=== PATIENT | male | born 1955 | race African-American/Black ===

== ENCOUNTER 2017-04-06 08:59 | Emergency (ER) | payer MEDICAID ==
[~2017-04-06] VITALS: Ht 172.7 cm; Wt 75.0 kg
[2017-04-06] MEDS ORDERED: SODIUM CHLORIDE 0.9% 1,000 ML IV ONE (09:31)
[2017-04-06 09:53] LABS: CLARITY URINE CLEAR (CLEAR); COLOR URINE YELLOW (YELLOW); GLUCOSE URINE NEGATIVE (NEGATIVE); KETONES URINE NEGATIVE (NEGATIVE); LEUKOCYTE ESTERASE URINE NEGATIVE (NEGATIVE); NITRITE URINE NEGATIVE (NEGATIVE); OCCULT BLOOD URINE NEGATIVE (NEGATIVE); PROTEIN URINE NEGATIVE (NEGATIVE); SPECIFIC GRAVITY URINE 1.006 (1.005-1.030); UROBILINOGEN URINE 0.2 E.U./dL (0.2-1.0)
[2017-04-06 10:03] LABS: PARTIAL THROMBOPLASTIN TIME 28.5 sec (23.4-31.0); PROTHROMBIN TIME 10.2 sec (9.4-11.6)
[2017-04-06 10:13] LABS: CARBON DIOXIDE 27 mEq/L (21-32); CHLORIDE 104 mEq/L (98-107); ETHANOL BLOOD < 10 mg/dL; TROPONIN I < 0.02 ng/mL (0.00-0.04)
[2017-04-06 10:15] LABS: BASOPHILS % 0.6 % (0.0-2.0); EOSINOPHILS % 1.6 % (0.0-5.0); HEMATOCRIT. 39.4 % (42.0-52.0); HEMOGLOBIN. 12.9 g/dL (14.0-18.0); LYMPHOCYTES % 33.1 % (20.0-50.0); MEAN CORPUSCULAR HEMOGLOBIN 27.5 pg (28.0-32.0); MEAN CORPUSCULAR VOLUME 83.9 fL (80.0-94.0); MEAN PLATELET VOLUME 7.7 fl (7.4-10.4); MONOCYTES % 10.9 % (2.0-8.0); NEUTROPHILS % 53.8 % (40.0-76.0); PLATELET 160 x1000/uL (130-400); RED BLOOD CELL COUNT 4.69 mill/uL (4.7-6.1); RED CELL DISTRIBUTION WIDTH 14.3 % (11.6-14.6)
[2017-04-06 10:19] LABS: *AMPHETAMINES SCREEN URINE NEGATIVE (NEGATIVE); *BARBITURATES SCREEN URINE NEGATIVE (NEGATIVE); *BENZODIAZEPINES SCREEN URINE NEGATIVE (NEGATIVE); *COCAINE SCREEN URINE NEGATIVE (NEGATIVE); CANNABINOID URINE SCREEN NEGATIVE (NEGATIVE); METHADONE URINE SCREEN NEGATIVE (NEGATIVE); OPIATES URINE SCREEN NEGATIVE (NEGATIVE); PHENCYCLIDINE URINE SCREEN NEGATIVE (NEGATIVE)
[2017-04-06 11:15] VITALS: BP 155/18
== END 2017-04-06 12:32 | disposition home or self-care (01) ==
LOC: ER 09:06
DX: R11.10 Vomiting, unspecified (principal); R35.8 Other polyuria; E11.9 Type 2 diabetes mellitus without complications; R56.9 Unspecified convulsions
CPT/HCPCS: 36415; 70450; 71010; 80053; 80185; 80305; 81003; 82962; 83735; 84484; 85025; 85610; 85730; 93005; 99285; G0482; J7030; Z7610

== ENCOUNTER 2018-09-17 10:04 | Inpatient (IN) | payer MEDICAID, OTHER ==
[~2018-09-17] VITALS: Ht 182.9 cm; Wt 73.5 kg
[2018-09-17 10:45] LABS: BASOPHILS % 0.7 % (0.0-2.0); EOSINOPHILS % 1.8 % (0.0-5.0); HEMATOCRIT. 46.2 % (42.0-52.0); HEMOGLOBIN. 14.8 g/dL (14.0-18.0); LYMPHOCYTES % 22.2 % (20.0-50.0); MEAN CORPUSCULAR HEMOGLOBIN 27.5 pg (28.0-32.0); MEAN CORPUSCULAR VOLUME 85.6 fL (80.0-94.0); MEAN PLATELET VOLUME 7.8 fl (7.4-10.4); NEUTROPHILS % 66.3 % (40.0-76.0); PLATELET 225 x1000/uL (130-400); RED CELL DISTRIBUTION WIDTH 14.4 % (11.6-14.6)
[2018-09-17 10:54] LABS: *BARBITURATES SCREEN URINE NEGATIVE (NEGATIVE)
[2018-09-17 10:57] LABS: INR 1.1; PARTIAL THROMBOPLASTIN TIME 31.5 sec (23.4-31.0); PROTHROMBIN TIME 10.6 sec (9.1-11.1)
[2018-09-17 10:58] LABS: *COCAINE SCREEN URINE PRESUMTIVE POSITIVE (NEGATIVE); CHLORIDE 106 mEq/L (98-107)
[2018-09-17 11:01] LABS: METHADONE URINE SCREEN NEGATIVE (NEGATIVE)
[2018-09-17 11:03] LABS: ETHANOL BLOOD < 10 mg/dL
[2018-09-17 11:07] LABS: PHENCYCLIDINE URINE SCREEN NEGATIVE (NEGATIVE)
[2018-09-17 11:08] LABS: CANNABINOID URINE SCREEN NEGATIVE (NEGATIVE)
[2018-09-17 11:12] LABS: *BENZODIAZEPINES SCREEN URINE NEGATIVE (NEGATIVE)
[2018-09-17 11:14] LABS: *AMPHETAMINES SCREEN URINE NEGATIVE (NEGATIVE); OPIATES URINE SCREEN NEGATIVE (NEGATIVE)
[2018-09-17] MEDS ORDERED: ASPIRIN 81MG TABLET PO ONE (11:45)
[2018-09-17 12:14] LABS: PHENOBARBITAL < 2.1 ug/mL (15.0-40.0)
[2018-09-17] MEDS ORDERED: PHENYTOIN SODIUM 1,000 MG in SODIUM CHLORIDE 0.9% 100 ML IV ONE (12:30)
[2018-09-17] MEDS ORDERED: PHENOBARBITAL 100MG TABLET PO ONE (12:30)
[2018-09-17] MEDS ORDERED: CLONIDINE 0.1MG TABLET PO PRN (14:30)
[2018-09-17] MEDS ORDERED: HYDROCODONE/ACETAMINOPHEN 5/325MG TABLET PO PRN (14:30)
[2018-09-17] MEDS ORDERED: IPRATROPIUM/ALBUTEROL 0.5-3(2.5)MG/3ML NEB INH PRN (14:30)
[2018-09-17] MEDS ORDERED: ACETAMINOPHEN 325MG TABLET PO PRN (14:30)
[2018-09-17] MEDS ORDERED: MORPHINE SULFATE 4 MG/ML CPJ (NOT FOR IM USE) IV PRN (14:30)
[2018-09-17] MEDS ORDERED: LORAZEPAM 0.5MG TABLET PO PRN (14:30)
[2018-09-17] MEDS ORDERED: DOCUSATE SODIUM 100MG CAPSULE PO PRN (14:30)
[2018-09-17] MEDS ORDERED: ONDANSETRON HCL 4MG/2ML INJ IV PRN (14:30)
[2018-09-17 18:18] LABS: PHOSPHORUS 2.2 mg/dL (2.5-4.9)
[2018-09-17 18:23] LABS: CREATINE KINASE MB FRACTION 2.5 ng/mL (0.5-3.6)
[2018-09-17 21:00] VITALS: BP 136/63
[2018-09-17] MEDS: INSULIN LISPRO 100 UNITS/ML SUBCUT SCH (21:53)
[2018-09-17] MEDS: BLOOD SUGAR DIAGNOSTIC STRIP TEST SCH (21:53)
[2018-09-17] MEDS ORDERED: DEXTROSE 50% WATER 50ML SYRINGE IV PRN (22:00)
[2018-09-17] MEDS ORDERED: PNEUMOCOCCAL 23-VAL P-SAC VAC 0.5 ML IM ONE (22:45)
[2018-09-17] MEDS ORDERED: INFLUENZA VIRUS VACCINE(AFLURIA) 0.5ML SYR IM ONE (22:45)
[2018-09-18] VITALS (7 sets, daily range): BP systolic 101–160; BP diastolic 51–72
[2018-09-18 06:23] LABS: BASOPHILS % 0.7 % (0.0-2.0); EOSINOPHILS % 2.8 % (0.0-5.0); HEMATOCRIT. 40.4 % (42.0-52.0); LYMPHOCYTES % 32.5 % (20.0-50.0); MEAN CORPUSCULAR HEMOGLOBIN 27.2 pg (28.0-32.0); MEAN CORPUSCULAR VOLUME 84.5 fL (80.0-94.0); MONOCYTES % 11.5 % (2.0-8.0); NEUTROPHILS % 52.5 % (40.0-76.0); PLATELET 228 x1000/uL (130-400); RED BLOOD CELL COUNT 4.78 mill/uL (4.7-6.1); RED CELL DISTRIBUTION WIDTH 14.2 % (11.6-14.6)
[2018-09-18] MEDS: BLOOD SUGAR DIAGNOSTIC STRIP TEST SCH ×4 (06:44→21:32)
[2018-09-18] MEDS: INSULIN LISPRO 100 UNITS/ML SUBCUT SCH ×4 (06:44→21:00)
[2018-09-18 07:23] LABS: CHLORIDE 108 mEq/L (98-107)
[2018-09-18] MEDS: ARIPIPRAZOLE 10MG TABLET PO SCH (09:22)
[2018-09-19] VITALS: BP 128/76
[2018-09-19 04:00] VITALS: BP 107/62
[2018-09-19] MEDS: BLOOD SUGAR DIAGNOSTIC STRIP TEST SCH ×4 (06:01→21:20)
[2018-09-19] MEDS: INSULIN LISPRO 100 UNITS/ML SUBCUT SCH ×3 (07:41→21:00)
[2018-09-19 08:00] VITALS: BP 113/49
[2018-09-19] MEDS: ARIPIPRAZOLE 10MG TABLET PO SCH (08:15)
[2018-09-19 12:00] VITALS: BP 101/42
[2018-09-19 16:00] VITALS: BP 141/58
[2018-09-19 20:00] VITALS: BP 131/60
[2018-09-20] VITALS: BP 129/65
[2018-09-20] MEDS: BLOOD SUGAR DIAGNOSTIC STRIP TEST SCH (05:52)
[2018-09-20 06:38] VITALS: BP 134/69
[2018-09-20 08:00] VITALS: BP 126/60
[2018-09-20] MEDS: INSULIN LISPRO 100 UNITS/ML SUBCUT SCH (08:10)
[2018-09-20] MEDS: ARIPIPRAZOLE 10MG TABLET PO SCH (09:42)
[2018-09-20 12:00] VITALS: BP 114/69
[2018-09-20 15:35] VITALS: BP 126/60
== END 2018-09-20 17:38 | disposition home or self-care (01) | DRG 203 ==
LOC: ER 10:04 → 7WST 11:20 → EDBEDREQTM 11:28 → EDBEDREQ 11:28 → ENRESERV 17:28
PROVIDERS: ADMIT Internal Medicine; ATTEND Internal Medicine
DX: M94.0 Chondrocostal junction syndrome [Tietze] (principal); I24.9 Acute ischemic heart disease, unspecified; I50.9 Heart failure, unspecified; F20.9 Schizophrenia, unspecified; E11.9 Type 2 diabetes mellitus without complications; G40.909 Epilepsy, unspecified, not intractable, without status epilepticus; F17.200 Nicotine dependence, unspecified, uncomplicated; F14.10 Cocaine abuse, uncomplicated; F31.9 Bipolar disorder, unspecified; Z79.84 Long term (current) use of oral hypoglycemic drugs; I25.2 Old myocardial infarction
CPT/HCPCS: 36415; 71045; 80048; 80061; 80184; 80185; 80305; 80320; 82550; 82553; 82962; 83036; 83735; 83880; 84100; 84443; 84484; 85379; 90686; 90732; 93005; 93306; 96365; 96366; 99291; J1165; J1815; J7050; G0480

== ENCOUNTER 2018-11-30 04:19 | Inpatient (IN) | payer SELFPAY ==
[~2018-11-30] VITALS: Ht 172.7 cm; Wt 64.5 kg
[2018-11-30] MEDS ORDERED: ASPIRIN 81MG TABLET PO ONE (06:30)
[2018-11-30 06:58] LABS: *AMPHETAMINES SCREEN URINE NEGATIVE (NEGATIVE); *BARBITURATES SCREEN URINE NEGATIVE (NEGATIVE); *BENZODIAZEPINES SCREEN URINE PRESUMTIVE POSITIVE (NEGATIVE); *COCAINE SCREEN URINE PRESUMTIVE POSITIVE (NEGATIVE); CANNABINOID URINE SCREEN NEGATIVE (NEGATIVE); METHADONE URINE SCREEN NEGATIVE (NEGATIVE); OPIATES URINE SCREEN NEGATIVE (NEGATIVE); PHENCYCLIDINE URINE SCREEN NEGATIVE (NEGATIVE)
[2018-11-30 06:58] LABS: BASOPHILS % 0.8 % (0.0-2.0); EOSINOPHILS % 0.9 % (0.0-5.0); HEMATOCRIT. 37.3 % (42.0-52.0); HEMOGLOBIN. 12.5 g/dL (14.0-18.0); LYMPHOCYTES % 25.6 % (20.0-50.0); MEAN CORPUSCULAR HEMOGLOBIN 27.2 pg (28.0-32.0); MEAN CORPUSCULAR VOLUME 81.3 fL (80.0-94.0); MEAN PLATELET VOLUME 6.8 fl (7.4-10.4); MONOCYTES % 9.5 % (2.0-8.0); NEUTROPHILS % 63.2 % (40.0-76.0); PLATELET 201 x1000/uL (130-400); RED BLOOD CELL COUNT 4.59 mill/uL (4.7-6.1); RED CELL DISTRIBUTION WIDTH 15.4 % (11.6-14.6)
[2018-11-30 07:03] LABS: CHLORIDE 105 mEq/L (98-107)
[2018-11-30 07:06] LABS: PROTHROMBIN TIME 10.4 sec (9.6-11.0)
[2018-11-30 07:08] LABS: ETHANOL BLOOD < 10 mg/dL
[2018-11-30 07:17] LABS: PHENOBARBITAL < 2.1 ug/mL (15.0-40.0)
[2018-11-30] MEDS ORDERED: ONDANSETRON HCL 4MG/2ML INJ IM ONE (08:00)
[2018-11-30] MEDS ORDERED: MORPHINE SULFATE 10 MG/ML CPJ IM ONE (08:00)
[2018-11-30] MEDS ORDERED: PHENOBARBITAL 100MG TABLET PO ONE (08:15)
[2018-11-30] MEDS ORDERED: LIDOCAINE HCL 1% 20ML VIAL (Pyxis) INJ ONE (08:26)
[2018-11-30] MEDS ORDERED: METF-414 PO (14:59)
[2018-11-30 15:00] VITALS: BP 131/68
[2018-11-30] MEDS ORDERED: ONDANSETRON HCL 4MG/2ML INJ IV PRN (15:45)
[2018-11-30] MEDS ORDERED: NA PHOS,M-B/NA PHOS,DI-BA ENEMA 118ML PR PRN (15:45)
[2018-11-30] MEDS ORDERED: ACETAMINOPHEN 650MG/20.3ML UDC GT PRN (15:45)
[2018-11-30] MEDS ORDERED: IPRATROPIUM/ALBUTEROL 0.5-3(2.5)MG/3ML NEB INH PRN (15:45)
[2018-11-30] MEDS ORDERED: ACETAMINOPHEN 325MG TABLET PO PRN (15:45)
[2018-11-30] MEDS ORDERED: DIPHENHYDRAMINE 50MG/ML VIAL IV PRN (15:45)
[2018-11-30] MEDS ORDERED: CLONIDINE 0.1MG TABLET PO PRN (15:45)
[2018-11-30] MEDS ORDERED: MAGNESIUM/ALUMINUM HYDROXIDE/SIMETHICONE 30ML UDC PO PRN (15:45)
[2018-11-30] MEDS ORDERED: DOCUSATE SODIUM 100MG CAPSULE PO PRN (15:45)
[2018-11-30] MEDS ORDERED: HYDROCODONE/ACETAMINOPHEN 5/325MG TABLET PO PRN (15:45)
[2018-11-30] MEDS ORDERED: ACETAMINOPHEN 650MG SUPP PR PRN (15:45)
[2018-11-30] MEDS ORDERED: GUAIFENESIN 200MG/10ML SUGAR FREE UDC PO PRN (15:45)
[2018-11-30 16:00] VITALS: BP 113/61
[2018-11-30] MEDS: BLOOD SUGAR DIAGNOSTIC STRIP TEST SCH ×2 (16:45→21:35)
[2018-11-30] MEDS ORDERED: DEXTROSE 50% WATER 50ML SYRINGE IV PRN (16:45)
[2018-11-30] MEDS: INSULIN LISPRO 100 UNITS/ML SUBCUT SCH ×2 (17:15→21:00)
[2018-11-30] MEDS: LEVETIRACETAM 500MG TABLET PO SCH ×2 (17:48→21:50)
[2018-11-30] MEDS: SODIUM CHLORIDE 0.9% 1,000 ML IV SCH (17:48)
[2018-11-30] MEDS: ENOXAPARIN 40MG/0.4ML SYR SUBCUT SCH (17:49)
[2018-11-30 19:07] LABS: BASOPHILS % 0.5 % (0.0-2.0); EOSINOPHILS % 0.8 % (0.0-5.0); HEMATOCRIT. 37.6 % (42.0-52.0); HEMOGLOBIN. 12.3 g/dL (14.0-18.0); LYMPHOCYTES % 15.9 % (20.0-50.0); MEAN CORPUSCULAR HEMOGLOBIN 27.1 pg (28.0-32.0); MEAN PLATELET VOLUME 7.1 fl (7.4-10.4); MONOCYTES % 7.6 % (2.0-8.0); NEUTROPHILS % 75.2 % (40.0-76.0); PLATELET 173 x1000/uL (130-400); RED BLOOD CELL COUNT 4.53 mill/uL (4.7-6.1)
[2018-11-30 19:14] LABS: CHLORIDE 107 mEq/L (98-107)
[2018-11-30 20:06] VITALS: BP 99/54
[2018-11-30] MEDS: PHENYTOIN SODIUM EXTENDED 100MG CAPSULE PO SCH (21:50)
[2018-11-30] MEDS: SODIUM CHLORIDE 0.9% INJ 3ML FLUSH IVF SCH (21:50)
[2018-12-01] VITALS (7 sets, daily range): BP systolic 100–134; BP diastolic 48–71
[2018-12-01] MEDS: BLOOD SUGAR DIAGNOSTIC STRIP TEST SCH ×4 (06:02→20:50)
[2018-12-01] MEDS: SODIUM CHLORIDE 0.9% INJ 3ML FLUSH IVF SCH ×3 (06:04→21:21)
[2018-12-01] MEDS: PHENYTOIN SODIUM EXTENDED 100MG CAPSULE PO SCH ×3 (06:04→21:21)
[2018-12-01 06:30] LABS: BASOPHILS % 0.5 % (0.0-2.0); HEMATOCRIT. 36.7 % (42.0-52.0); LYMPHOCYTES % 24.2 % (20.0-50.0); MEAN CORPUSCULAR HEMOGLOBIN 26.9 pg (28.0-32.0); MEAN CORPUSCULAR VOLUME 82.3 fL (80.0-94.0); MONOCYTES % 9.8 % (2.0-8.0); NEUTROPHILS % 64.5 % (40.0-76.0); PLATELET 172 x1000/uL (130-400); RED BLOOD CELL COUNT 4.46 mill/uL (4.7-6.1); RED CELL DISTRIBUTION WIDTH 15.3 % (11.6-14.6)
[2018-12-01 06:34] LABS: CHLORIDE 108 mEq/L (98-107)
[2018-12-01 06:42] LABS: LDL CHOLESTEROL 76 mg/dL (5-100)
[2018-12-01 06:44] LABS: HDL CHOLESTEROL 58 mg/dL (40-59)
[2018-12-01] MEDS: INSULIN LISPRO 100 UNITS/ML SUBCUT SCH ×4 (07:15→20:51)
[2018-12-01] MEDS: LEVETIRACETAM 500MG TABLET PO SCH ×2 (09:27→21:22)
[2018-12-01] MEDS: SODIUM CHLORIDE 0.9% 1,000 ML IV SCH (13:24)
[2018-12-01] MEDS ORDERED: KEPP500 PO (16:07)
[2018-12-01] MEDS: ENOXAPARIN 40MG/0.4ML SYR SUBCUT SCH (16:52)
[2018-12-01] MEDS: RISPERIDONE 0.5MG TABLET PO SCH (21:22)
[2018-12-02] VITALS: BP 123/59
[2018-12-02 04:00] VITALS: BP 127/60
[2018-12-02] MEDS: SODIUM CHLORIDE 0.9% INJ 3ML FLUSH IVF SCH ×3 (05:40→22:00)
[2018-12-02] MEDS: PHENYTOIN SODIUM EXTENDED 100MG CAPSULE PO SCH ×3 (05:45→21:13)
[2018-12-02] MEDS: BLOOD SUGAR DIAGNOSTIC STRIP TEST SCH ×4 (06:02→21:15)
[2018-12-02] MEDS: INSULIN LISPRO 100 UNITS/ML SUBCUT SCH ×4 (06:22→21:00)
[2018-12-02 08:00] VITALS: BP 136/76
[2018-12-02] MEDS: LEVETIRACETAM 500MG TABLET PO SCH ×2 (08:35→21:13)
[2018-12-02] MEDS: RISPERIDONE 0.5MG TABLET PO SCH ×2 (08:35→21:13)
[2018-12-02 12:00] VITALS: BP 112/65
[2018-12-02] MEDS: SODIUM CHLORIDE 0.9% 1,000 ML IV SCH (18:00)
[2018-12-02] MEDS: ENOXAPARIN 40MG/0.4ML SYR SUBCUT SCH (18:31)
[2018-12-02 20:00] VITALS: BP 149/77
[2018-12-03] VITALS: BP 134/73
[2018-12-03 04:00] VITALS: BP 124/58
[2018-12-03] MEDS: SODIUM CHLORIDE 0.9% INJ 3ML FLUSH IVF SCH ×2 (06:00→13:17)
[2018-12-03] MEDS: PHENYTOIN SODIUM EXTENDED 100MG CAPSULE PO SCH ×2 (06:14→13:29)
[2018-12-03] MEDS: INSULIN LISPRO 100 UNITS/ML SUBCUT SCH ×2 (06:15→12:15)
[2018-12-03] MEDS: BLOOD SUGAR DIAGNOSTIC STRIP TEST SCH ×2 (06:15→12:37)
[2018-12-03 08:00] VITALS: BP 133/68
[2018-12-03] MEDS: RISPERIDONE 0.5MG TABLET PO SCH (09:28)
[2018-12-03] MEDS: LEVETIRACETAM 500MG TABLET PO SCH (09:28)
[2018-12-03 12:00] VITALS: BP 127/66
[2018-12-03 14:09] VITALS: BP 127/66
== END 2018-12-03 14:35 | disposition home or self-care (01) | DRG 816 ==
LOC: ER 04:19 → 5WST 10:50 → EDBEDREQ 10:53 → ENRESERV 11:53
PROVIDERS: ADMIT Family Medicine; ATTEND Family Medicine
PROC: 02H633Z Insertion of Infusion Device into Right Atrium, Percutaneous Approach (ICD-10-PCS; principal; 2018-11-30)
PROC: B244ZZZ Ultrasonography of Right Heart (ICD-10-PCS; 2018-11-30)
DX: T40.5X1A Poisoning by cocaine, accidental (unintentional), initial encounter (principal); G92 Toxic encephalopathy; F20.9 Schizophrenia, unspecified; G40.409 Other generalized epilepsy and epileptic syndromes, not intractable, without status epilepticus; D64.9 Anemia, unspecified; E11.9 Type 2 diabetes mellitus without complications; F14.10 Cocaine abuse, uncomplicated; F17.210 Nicotine dependence, cigarettes, uncomplicated; F31.9 Bipolar disorder, unspecified; R07.89 Other chest pain; Y92.89 Other specified places as the place of occurrence of the external cause; Z59.0 Homelessness; Z59.7 Insufficient social insurance and welfare support; Z79.899 Other long term (current) drug therapy; Z91.14 Patient's other noncompliance with medication regimen; Z91.19 Patient's noncompliance with other medical treatment and regimen; Z79.84 Long term (current) use of oral hypoglycemic drugs
CPT/HCPCS: 36415; 36569; 71045; 76937; 80048; 80061; 80184; 80185; 80305; 80320; 82962; 83880; 84484; 93005; 93306; 96374; 97162; 97535; 99285; C1725; J1650; J2270; J2405; J3490; J7030; G0480

== ENCOUNTER 2019-06-06 10:39 | Emergency (ER) | payer MEDICAID, OTHER ==
[~2019-06-06] VITALS: Ht 165.1 cm; Wt 63.0 kg
[~2019-06-06 10:39] MED LIST: KEPP500 PO; METF-414 PO
[2019-06-06] MEDS ORDERED: MORPHINE SULFATE 4 MG/ML CPJ (NOT FOR IM USE) IV STA (10:55)
[2019-06-06] MEDS ORDERED: SODIUM CHLORIDE 0.9% 1,000 ML IV ONE (10:55)
[2019-06-06 12:55] LABS: BASOPHILS % 0.4 % (0.0-2.0); EOSINOPHILS % 1.7 % (0.0-5.0); HEMATOCRIT. 36.4 % (42.0-52.0); HEMOGLOBIN. 11.8 g/dL (14.0-18.0); LYMPHOCYTES % 17.2 % (20.0-50.0); MEAN CORPUSCULAR HEMOGLOBIN 27.1 pg (28.0-32.0); MEAN CORPUSCULAR VOLUME 83.6 fL (80.0-94.0); MEAN PLATELET VOLUME 7.8 fl (7.4-10.4); MONOCYTES % 9.8 % (2.0-8.0); NEUTROPHILS % 70.9 % (40.0-76.0); PLATELET 253 x1000/uL (130-400); RED BLOOD CELL COUNT 4.36 mill/uL (4.7-6.1); RED CELL DISTRIBUTION WIDTH 15.1 % (11.6-14.6)
[2019-06-06 13:00] LABS: CHLORIDE 102 mEq/L (98-107)
[2019-06-06 13:03] LABS: INR 0.9; PROTHROMBIN TIME 9.6 sec (9.6-11.0)
[2019-06-06] MEDS ORDERED: LIDOCAINE HCL/EPINEPHRINE 1%-EPI 1:100,000 20 ML VIAL INFIL ONE (13:15)
[2019-06-06] MEDS ORDERED: SODIUM BICARBONATE 4% (2.4MEQ) 5ML VIAL IV ONE (13:24)
[2019-06-06] MEDS ORDERED: LIDOCAINE HCL 1% 20ML VIAL (Pyxis) INJ ONE (13:24)
[2019-06-06] MEDS ORDERED: CEFTRIAXONE 1 G PREMIX 50 ML IV ONE (13:45)
[2019-06-06] MEDS ORDERED: VANCOMYCIN 1 G PREMIX 200 ML IV SCH (13:45)
[2019-06-06] MEDS ORDERED: MORPHINE SULFATE 4 MG/ML CPJ (NOT FOR IM USE) IV ONE (20:30)
[2019-06-06] MEDS ORDERED: CLONIDINE 0.2MG TABLET PO ONE (20:30)
[2019-06-06 21:02] VITALS: BP 162/81
== END 2019-06-06 21:00 | disposition short-term general hospital (02) ==
LOC: ER 10:39
DX: M25.562 Pain in left knee (principal); E11.9 Type 2 diabetes mellitus without complications; I10 Essential (primary) hypertension; F14.10 Cocaine abuse, uncomplicated
CPT/HCPCS: 36415; 36573; 73562; 76937; 80053; 82962; 83605; 85025; 85610; 85651; 86140; 87040; 87070; 87075; 87205; 89050; 96365; 96368; 96375; 96376; 99285; C1725; J0696; J2270; J3370; J3490; J7030; Z7610

== ENCOUNTER 2019-07-26 09:12 | Emergency (ER) | payer OTHER ==
[~2019-07-26] VITALS: Ht 157.5 cm; Wt 70.0 kg
[2019-07-26] MEDS ORDERED: ASPIRIN 81MG TABLET PO ONE (10:30)
[2019-07-26] MEDS ORDERED: NITROGLYCERIN 0.4MG TABLET SL SL PRN (10:30)
[2019-07-26 11:03] LABS: BASOPHILS % 0.7 % (0.0-2.0); HEMATOCRIT. 40.6 % (42.0-52.0); HEMOGLOBIN. 13.1 g/dL (14.0-18.0); LYMPHOCYTES % 15.4 % (20.0-50.0); MEAN CORPUSCULAR HEMOGLOBIN 26.8 pg (28.0-32.0); MEAN CORPUSCULAR VOLUME 83.3 fL (80.0-94.0); MEAN PLATELET VOLUME 7.6 fl (7.4-10.4); MONOCYTES % 12.2 % (2.0-8.0); NEUTROPHILS % 69.7 % (40.0-76.0); PLATELET 185 x1000/uL (130-400); RED BLOOD CELL COUNT 4.87 mill/uL (4.7-6.1); RED CELL DISTRIBUTION WIDTH 15.4 % (11.6-14.6)
[2019-07-26 11:09] LABS: CHLORIDE 107 mEq/L (98-107)
[2019-07-26 11:13] LABS: ETHANOL BLOOD < 10 mg/dL
[2019-07-26 13:00] LABS: *AMPHETAMINES SCREEN URINE NEGATIVE (NEGATIVE); *BARBITURATES SCREEN URINE NEGATIVE (NEGATIVE); *BENZODIAZEPINES SCREEN URINE NEGATIVE (NEGATIVE); *COCAINE SCREEN URINE PRESUMTIVE POSITIVE (NEGATIVE); CANNABINOID URINE SCREEN NEGATIVE (NEGATIVE)
[2019-07-26 13:01] LABS: METHADONE URINE SCREEN NEGATIVE (NEGATIVE); OPIATES URINE SCREEN NEGATIVE (NEGATIVE); PHENCYCLIDINE URINE SCREEN NEGATIVE (NEGATIVE)
[2019-07-26 18:11] VITALS: BP 152/58
== END 2019-07-26 18:59 | disposition short-term general hospital (02) ==
LOC: ER 09:21 → CANBEDREQ 19:40
DX: I20.0 Unstable angina (principal); I10 Essential (primary) hypertension; R91.8 Other nonspecific abnormal finding of lung field; E11.9 Type 2 diabetes mellitus without complications; G40.909 Epilepsy, unspecified, not intractable, without status epilepticus; Z79.84 Long term (current) use of oral hypoglycemic drugs; Z79.899 Other long term (current) drug therapy
CPT/HCPCS: 36415; 71045; 80053; 80305; 80320; 83880; 84484; 85025; 93005; 99285; Z7610; G0480